=== PATIENT | male | born 1935 | race Caucasian/White ===

== ENCOUNTER → 2016-07-13 | Outpatient (CLI) | payer OTHER, MEDICARE ==
[~2016-07-13] MED LIST: ACET325T96 PO; AMLO5TAB4 PO; ASCO250T4 PO; BENA20TA14 PO; IMD/2 PO; LORA10CA2 PO; METO50TA16 PO; MULT-506 PO; TRAM-10 PO; WARF5TAB90 PO; [UNRECOGNIZED DRUG - CODE] NAE
[2016-07-13 10:34] LABS: INR 3.1 (0.9-1.1); PROTHROMBIN TIME (PATIENT) 34.8 SECONDS (9.0-12.0)
== END | disposition home or self-care (01) ==
LOC: C.LABVPSUA 10:02
PROVIDERS: ATTEND Internal Medicine Critical Care Medicine
DX: I48.91 Unspecified atrial fibrillation (principal)

== ENCOUNTER → 2016-07-28 | Outpatient (CLI) | payer OTHER, MEDICARE ==
[2016-07-28 10:12] LABS: INR 2.8 (0.9-1.1); PROTHROMBIN TIME (PATIENT) 30.8 SECONDS (9.0-12.0)
== END | disposition home or self-care (01) ==
LOC: C.LABVPSUA 09:40
PROVIDERS: ATTEND Internal Medicine Critical Care Medicine
DX: I48.91 Unspecified atrial fibrillation (principal)

== ENCOUNTER → 2016-09-14 | Outpatient (CLI) | payer OTHER, MEDICARE ==
[2016-09-14 10:05] LABS: PROTHROMBIN TIME (PATIENT) 49.6 SECONDS (9.0-12.0)
[2016-09-14 10:09] LABS: INR 4.4 (0.9-1.1)
== END | disposition home or self-care (01) ==
LOC: C.LABVPSUA 09:26
PROVIDERS: ATTEND Internal Medicine Critical Care Medicine
DX: I48.91 Unspecified atrial fibrillation (principal)

== ENCOUNTER → 2016-09-20 | Outpatient (CLI) | payer OTHER, MEDICARE ==
[2016-09-20 10:27] LABS: INR 2.4 (0.9-1.1); PROTHROMBIN TIME (PATIENT) 27.2 SECONDS (9.0-12.0)
== END ==
LOC: C.LABVPSUA 09:29
PROVIDERS: ATTEND Internal Medicine Critical Care Medicine
DX: I48.91 Unspecified atrial fibrillation (principal)

== ENCOUNTER → 2016-09-28 | Outpatient (CLI) | payer OTHER, MEDICARE ==
[2016-09-28 10:16] LABS: INR 1.4 (0.9-1.1); PROTHROMBIN TIME (PATIENT) 15.6 SECONDS (9.0-12.0)
== END | disposition home or self-care (01) ==
LOC: C.LABVPSUA 09:44
PROVIDERS: ATTEND Internal Medicine Critical Care Medicine
DX: I48.91 Unspecified atrial fibrillation (principal)

== ENCOUNTER → 2016-10-05 | Outpatient (CLI) | payer OTHER, MEDICARE ==
[2016-10-05 09:16] LABS: INR 1.3 (0.9-1.1); PROTHROMBIN TIME (PATIENT) 14.5 SECONDS (9.0-12.0)
== END | disposition home or self-care (01) ==
LOC: C.LABVPSUA 08:44
PROVIDERS: ATTEND Internal Medicine Critical Care Medicine
DX: I48.91 Unspecified atrial fibrillation (principal)

== ENCOUNTER → 2016-10-12 | Outpatient (CLI) | payer OTHER, MEDICARE ==
[2016-10-12 10:21] LABS: INR 2.1 (0.9-1.1); PROTHROMBIN TIME (PATIENT) 23.7 SECONDS (9.0-12.0)
== END | disposition home or self-care (01) ==
LOC: C.LABVPSUA 09:13
PROVIDERS: ATTEND Internal Medicine Critical Care Medicine
DX: I48.91 Unspecified atrial fibrillation (principal)

== ENCOUNTER → 2016-10-19 | Outpatient (CLI) | payer OTHER, MEDICARE ==
[2016-10-19 09:15] LABS: INR 2.2 (0.9-1.1); PROTHROMBIN TIME (PATIENT) 24.9 SECONDS (9.0-12.0)
== END | disposition home or self-care (01) ==
LOC: C.LABVPSUA 08:58
PROVIDERS: ATTEND Internal Medicine Critical Care Medicine
DX: I48.91 Unspecified atrial fibrillation (principal)

== ENCOUNTER → 2016-11-02 | Outpatient (CLI) | payer OTHER, MEDICARE ==
[2016-11-02 09:46] LABS: INR 2.4 (0.9-1.1); PROTHROMBIN TIME (PATIENT) 26.8 SECONDS (9.0-12.0)
== END ==
LOC: C.LABVPSUA 08:48
PROVIDERS: ATTEND Internal Medicine Critical Care Medicine
DX: I48.91 Unspecified atrial fibrillation (principal)

== ENCOUNTER → 2016-11-16 | Outpatient (CLI) | payer OTHER, MEDICARE ==
[2016-11-16 09:48] LABS: INR 2.3 (0.9-1.1); PROTHROMBIN TIME (PATIENT) 25.8 SECONDS (9.0-12.0)
== END ==
LOC: C.LABVPSUA 09:00
PROVIDERS: ATTEND Internal Medicine Critical Care Medicine
DX: I48.91 Unspecified atrial fibrillation (principal)

== ENCOUNTER → 2016-12-08 | Outpatient (CLI) | payer OTHER, MEDICARE ==
[2016-12-08 09:14] LABS: INR 2.3 (0.9-1.1); PROTHROMBIN TIME (PATIENT) 25.5 SECONDS (9.0-12.0)
== END | disposition home or self-care (01) ==
LOC: C.LABVPSUA 08:48
PROVIDERS: ATTEND Internal Medicine Critical Care Medicine
DX: I48.91 Unspecified atrial fibrillation (principal)

== ENCOUNTER → 2016-12-14 | Outpatient (CLI) | payer OTHER, MEDICARE ==
[2016-12-14 10:14] LABS: INR 2.2 (0.9-1.1); PROTHROMBIN TIME (PATIENT) 24.5 SECONDS (9.0-12.0)
== END ==
LOC: C.LABVPSUA 09:50
PROVIDERS: ATTEND Internal Medicine Critical Care Medicine
DX: I48.91 Unspecified atrial fibrillation (principal)

== ENCOUNTER → 2016-12-28 | Outpatient (CLI) | payer OTHER, MEDICARE ==
[2016-12-28 11:54] LABS: INR 2.6 (0.9-1.1); PROTHROMBIN TIME (PATIENT) 28.7 SECONDS (9.0-12.0)
== END | disposition home or self-care (01) ==
LOC: C.LABVPSUA 10:26
PROVIDERS: ATTEND Internal Medicine Critical Care Medicine
DX: I48.91 Unspecified atrial fibrillation (principal)

== ENCOUNTER → 2017-01-05 | Outpatient (CLI) | payer OTHER, MEDICARE ==
[2017-01-05 10:57] LABS: INR 2.3 (0.9-1.1); PROTHROMBIN TIME (PATIENT) 25.3 SECONDS (9.0-12.0)
== END ==
LOC: C.LABVPSUA 09:41
PROVIDERS: ATTEND Internal Medicine Critical Care Medicine
DX: I48.91 Unspecified atrial fibrillation (principal)

== ENCOUNTER → 2017-01-25 | Outpatient (CLI) | payer OTHER, MEDICARE ==
[2017-01-25 10:24] LABS: INR 2.6 (0.9-1.1); PROTHROMBIN TIME (PATIENT) 28.8 SECONDS (9.0-12.0)
== END | disposition home or self-care (01) ==
LOC: C.LABVPSUA 09:09
PROVIDERS: ATTEND Internal Medicine Critical Care Medicine
DX: I48.91 Unspecified atrial fibrillation (principal)

== ENCOUNTER → 2017-02-04 | Outpatient (CLI) | payer OTHER, MEDICARE ==
[2017-02-04 09:38] LABS: INR 2.1 (0.9-1.1); PROTHROMBIN TIME (PATIENT) 22.9 SECONDS (9.0-12.0)
== END | disposition home or self-care (01) ==
LOC: C.LABVPSUA 08:56
PROVIDERS: ATTEND Internal Medicine Critical Care Medicine
DX: I48.91 Unspecified atrial fibrillation (principal)

== ENCOUNTER → 2017-02-22 | Outpatient (CLI) | payer OTHER, MEDICARE ==
[2017-02-22 10:44] LABS: INR 2.4 (0.9-1.1); PROTHROMBIN TIME (PATIENT) 26.2 SECONDS (9.0-12.0)
--- NOTE | 2017-02-24 15:42 | CODING QUERY NO DIAGNOSIS ---
: 1935 TREATMENT RENDERED WITHOUT A DIAGNOSIS To promote full compliance with coding requirements relating to patient care, physician participation is requested in all cases of braille coder uncertainty. Please assist us with providing a diagnosis/symptom for the test(s) below: A diagnosis/symptom was not documented on your Order. A valid diagnosis/symptom is required to bill all insurances. Please remember that we are unable to code a diagnosis of rule out, probable, possible, questionable, or suspected. Tests that require a diagnosis: DOS: 02/22/17 * PROTHROMBIN TIME PROFILE DIAGNOSIS: Provider Signature: Date: Thank you Natali Pineda [facility] Information Management Once completed, please kindly fax back to [phone] For questions please call [phone]
== END | disposition home or self-care (01) ==
LOC: C.LABVPSUA 10:09
PROVIDERS: ATTEND Internal Medicine Critical Care Medicine
DX: I48.91 Unspecified atrial fibrillation (principal)

== ENCOUNTER → 2017-03-25 | Outpatient (CLI) | payer OTHER, MEDICARE ==
[2017-03-25 09:12] LABS: INR 2.2 (0.9-1.1); PROTHROMBIN TIME (PATIENT) 24.6 SECONDS (9.0-12.0)
== END ==
LOC: C.LABVPSUA 08:43
PROVIDERS: ATTEND Internal Medicine Critical Care Medicine
DX: I48.91 Unspecified atrial fibrillation (principal)

== ENCOUNTER → 2017-04-25 | Outpatient (CLI) | payer OTHER, MEDICARE ==
[2017-04-25 10:07] LABS: INR 2.3 (0.9-1.1); PROTHROMBIN TIME (PATIENT) 25.8 SECONDS (9.0-12.0)
== END ==
LOC: C.LABVPSUA 09:24
PROVIDERS: ATTEND Internal Medicine Critical Care Medicine
DX: I48.91 Unspecified atrial fibrillation (principal)

== ENCOUNTER → 2017-05-25 | Outpatient (CLI) | payer OTHER, MEDICARE ==
[2017-05-25 10:24] LABS: INR 2.3 (0.9-1.1); PROTHROMBIN TIME (PATIENT) 25.8 SECONDS (9.0-12.0)
== END | disposition home or self-care (01) ==
LOC: C.LABVPSUA 10:00
PROVIDERS: ATTEND Internal Medicine Critical Care Medicine
DX: I48.91 Unspecified atrial fibrillation (principal)

== ENCOUNTER → 2017-06-24 | Outpatient (CLI) | payer OTHER, MEDICARE ==
[2017-06-24 09:30] LABS: PROTHROMBIN TIME (PATIENT) 20.3 SECONDS (9.0-12.0)
== END | disposition home or self-care (01) ==
LOC: C.LABVPSUA 09:04
PROVIDERS: ATTEND Internal Medicine Critical Care Medicine
DX: I48.91 Unspecified atrial fibrillation (principal)

== ENCOUNTER → 2017-07-25 | Outpatient (CLI) | payer OTHER, MEDICARE ==
[2017-07-25 09:42] LABS: INR 2.3 (0.9-1.1)
== END | disposition home or self-care (01) ==
LOC: C.LABVPSUA 08:48
PROVIDERS: ATTEND Internal Medicine Critical Care Medicine
DX: I48.91 Unspecified atrial fibrillation (principal)

== ENCOUNTER → 2017-08-25 | Outpatient (CLI) | payer OTHER, MEDICARE ==
[~2017-08-25] MED LIST changes: +ACET-1693 PO; -ACET325T96 PO
[2017-08-25 10:09] LABS: INR 2.3 (0.9-1.1)
== END | disposition home or self-care (01) ==
LOC: C.LABVPSUA 09:47
PROVIDERS: ATTEND Internal Medicine Critical Care Medicine
DX: I48.91 Unspecified atrial fibrillation (principal)

== ENCOUNTER → 2017-09-22 | Outpatient (CLI) | payer OTHER, MEDICARE ==
[2017-09-22 09:26] LABS: INR 2.8 (0.9-1.1)
== END | disposition home or self-care (01) ==
LOC: C.LABVPSUA 09:03
PROVIDERS: ATTEND Internal Medicine Critical Care Medicine
DX: I48.91 Unspecified atrial fibrillation (principal)

== ENCOUNTER → 2017-11-22 | Outpatient (CLI) | payer OTHER, MEDICARE ==
[2017-11-22 09:59] LABS: INR 2.2 (0.9-1.1)
== END ==
LOC: C.LABVPSUA 09:23
PROVIDERS: ATTEND Internal Medicine Critical Care Medicine
DX: I48.91 Unspecified atrial fibrillation (principal)

== ENCOUNTER → 2018-02-22 | Outpatient (CLI) | payer OTHER, MEDICARE ==
[2018-02-22 09:40] LABS: INR 2.3 (0.9-1.1)
== END ==
LOC: C.LABVPSUA 08:40
PROVIDERS: ATTEND Internal Medicine Critical Care Medicine
DX: I48.91 Unspecified atrial fibrillation (principal)